=== PATIENT | female | born 1940 | race Caucasian/White ===

== ENCOUNTER 2018-05-25 22:49 | Emergency (ER) | payer OTHER, MEDICARE ==
[2018-05-25 22:57] VITALS: BMI 29.0
--- NOTE | 2018-05-26 00:15 | PDOC ---
History of Present Illness - General Chief Complaint: Psychiatric Stated Complaint: MALAISE Time Seen by Provider: 05/25/18 23:56 - History of Present Illness Initial Comments: This 77-year-old woman presents with a brief episode of palpitations several hours prior to arrival in ER. Patient was seen by her PMD, , earlier today and arrangements for outpatient head CT and laboratory tests are made for tomorrow, 05/26. About an hour after arriving home from the doctor's appointment ( at approximately 8 PM) patient states that she had sensation of rapid heartbeat for approximately 1 minute. During that time, she did not have any shortness of breath, chest pain, lightheadedness. Rapid heartbeat resolved spontaneously and has not recurred. The patient had been seen by her PMD earlier with history of left temporal muscle twitching and lower body sensation of increased heat. 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, RIGHT) Cardiac Disorders: No CVA: No COPD: No CHF: No Dementia: No Diabetes: No GI Disorders: No Disorders: No HTN: Yes Hypercholesterolemia: Yes Liver Disease: No Seizures: No Thyroid Disease: Yes (PARTIAL THYROIDECTOMY FOR NODULE 1994) - Surgical History Abdominal Surgery: No Appendectomy: No Cardiac Surgery: No Cholecystectomy: No Lung Surgery: No Neurologic Surgery: Yes (FUSION C6 AND C7 1994) Orthopedic Surgery: Yes - Immunization History Immunization Up to Date: Yes - Suicide/Smoking/Psychosocial Hx Smoking History: Former smoker Have you smoked in the past 12 months: No If you are a former smoker, when did you quit?: 2006 Information on smoking cessation initiated: No Hx Alcohol Use: No Drug/Substance Use Hx: No Substance Use Type: Alcohol, Tranquilizers Hx Substance Use Treatment: Yes Review of Systems - Review of Systems Able to Perform ROS?: Yes Comments:: 12 point review of systems is negative except for what is noted in the history of present illness *Physical Exam - Vital Signs Last Vital Signs Temp Pulse Resp BP Pulse Ox 97.9 F 78 22 H 178/84 H 98 05/25/18 22:51 05/25/18 22:51 05/25/18 22:51 05/25/18 22:51 05/25/18 22:51 - Physical Exam Comments: GENERAL: Elderly female, alert and oriented 3, pleasant and in no acute distress HEAD: Normal with no signs of trauma. EYES: PERRLA, EOMI, sclera anicteric, conjunctiva clear. ENT: Ears normal, nares patent, oropharynx clear without exudates. Moist mucous membranes. NECK: Normal range of motion, supple without lymphadenopathy, JVD, or masses. LUNGS: Breath sounds equal, clear to auscultation bilaterally. No wheezes, and no crackles. HEART:Regular rate and rhythm, normal S1 and S2 without murmur, rub or gallop. ABDOMEN:.normal bowel sounds No guarding,tenderness or rebound.No masses No distention. EXTREMITIES: Normal range of motion, no edema. No clubbing or cyanosis. No erythema, or tenderness. NEUROLOGICAL: Cranial nerves II through XII grossly intact. Normal speech. No focal neurological deficits. MUSCULOSKELETAL: Back non-tender to palpation, no CVA tenderness SKIN: Warm, Dry, normal turgor, no rashes or lesions noted. Medical Decision Making - Medical Decision Making This 77-year-old woman presents with history of palpitations at home, lasting less than a minute , occurring approximately 4 hours prior to arrival. She had no associated symptoms during the time of rapid heartbeat and has felt well since then. She has had no recurrence of rapid or irregular heartbeat. She has no other complaints. Exam as noted is unremarkable; heart rate is 72 and regular, blood pressure 150/74 and oxygen saturation is 98% on room air. Patient is comfortable and without complaints. Patient is scheduled to have laboratory evaluation and head CT tomorrow as an outpatient, prescribed by her PMD (). She plans to have these performed tomorrow morning. Patient will be discharged with advice to return to the emergency room immediately if she has any recurrent rapid or irregular heart beats or if she experiences any chest pain/shortness of breath/lightheadedness. *DC/Admit/Observation/Transfer Diagnosis at time of Disposition: History of palpitations - Discharge Dispostion Disposition: HOME Condition at time of disposition: Stable - Referrals Referrals: Taco Ceron MD [Primary Care Provider] - - Patient Instructions Printed Discharge Instructions: DI for Palpitations Additional Instructions: Return to ER if you have persistent palpitations or you have chest pain, shortness of breath or lightheadedness Have outpatient labs/CT tomorrow as per Dr Ceron - Post Discharge Activity
[2018-05-26 00:37] VITALS: BP 150/74; PULSE 72; TEMP 98.6
== END 2018-05-26 00:36 | disposition home or self-care (01) ==
LOC: FER 22:49
DX: R00.2 Palpitations (principal); Z87.891 Personal history of nicotine dependence; Z85.3 Personal history of malignant neoplasm of breast; I10 Essential (primary) hypertension; E78.00 Pure hypercholesterolemia, unspecified; E07.9 Disorder of thyroid, unspecified
CPT/HCPCS: 99281-25

== ENCOUNTER 2021-02-14 12:00 | Emergency (ER) | payer OTHER, MEDICARE ==
[2021-02-14 12:08] VITALS: BP 145/87; PULSE 87; TEMP 98.1; BMI 28.1
[2021-02-14] MEDS ORDERED: ACETAMINOPHEN 325 MG TABLET (FP) PO ONE (14:07)
[2021-02-14] MEDS ORDERED: ACETAMINOPHEN 325 MG TABLET (FP) ONE (14:11)
== END 2021-02-14 15:20 | disposition home or self-care (01) ==
LOC: FER 12:00
DX: M25.561 Pain in right knee (principal)
CPT/HCPCS: 73562-TC-RT-FY; 99284-25

== ENCOUNTER 2021-03-05 12:51 | Emergency (ER) | payer OTHER, MEDICARE ==
[2021-03-05 13:02] VITALS: BMI 28.0
[2021-03-05 14:40] LABS: BASO % 1.3 % (0-2.0); EOS % 5.5 % (0-4.5); HEMATOCRIT 38.6 % (32.4-45.2); HEMOGLOBIN 12.6 GM/dL (10.7-15.3); LYMPH % 26.1 % (8-40); MCH 30.1 pg (25.7-33.7); MCHC 32.6 g/dl (32.0-36.0); MEAN CELL VOLUME 92.3 fl (80-96); MEAN PLT VOLUME 8.6 fl (7.5-11.1); MONO % 9.9 % (3.8-10.2); NEUT % 57.2 % (42.8-82.8); PLATELET COUNT 262 10^3/uL (134-434); RBC 4.18 M/mm3 (3.60-5.2); RDW 13.3 % (11.6-15.6); WHITE BLOOD COUNT 4.1 K/mm3 (4.0-10.0)
[2021-03-05 15:12] LABS: CHLORIDE 104 mmol/L (98-107); SODIUM 137 mmol/L (136-145)
[2021-03-05 15:14] LABS: ALBUMIN 3.9 g/dl (3.4-5.0); ANION GAP 6 MMOL/L (8-16); BLOOD UREA NITROGEN 10.6 mg/dL (7-18); CALCIUM 9.6 mg/dL (8.5-10.1); CO2 27 mmol/L (21-32); GLUCOSE,RANDOM 93 mg/dL (74-106); MAGNESIUM 2.3 mg/dL (1.8-2.4)
[2021-03-05 15:18] LABS: CREATININE 0.8 mg/dL (0.55-1.3); SGOT/AST 22 U/L (15-37); SGPT/ALT 31 U/L (13-61)
[2021-03-05 15:20] LABS: ALK PHOS 91 U/L (45-117); BILIRUBIN,TOTAL 0.4 mg/dL (0.2-1); TOT PROT 6.8 g/dl (6.4-8.2)
[2021-03-05 16:22] LABS: EPI CELLS 2 /uL (0-25.1); HYALINE CASTS 0 /uL (0-3.1); PH,URINE 6.5 (5.0-8.0); URINE APPEARANCE CLEAR; URINE BACTERIA 28 /uL (0-1359); URINE BILIRUBIN NEGATIVE (NEGATIVE); URINE COLOR YELLOW; URINE GLUCOSE (UA) NEGATIVE (NEGATIVE); URINE KETONE NEGATIVE (NEGATIVE); URINE LEUK ESTERASE TRACE (NEGATIVE); URINE NITRITE NEGATIVE (NEGATIVE); URINE PROTEIN NEGATIVE (NEGATIVE); URINE RBC 5 /uL (0-23.9); URINE UROBILINOGEN 0.2 mg/dL (0.2-1.0); URINE WBC 4 /uL (0-25.8)
[2021-03-05 16:55] VITALS: BP 158/80; PULSE 85; TEMP 98
== END 2021-03-05 16:57 | disposition home or self-care (01) ==
LOC: JER 12:51
DX: R00.2 Palpitations (principal)
CPT/HCPCS: 36415; 71045-TC-FY; 80053; 81003; 83735; 84439; 84443; 84484; 85025; 87086; 93005; 93010; 99285-25

== ENCOUNTER 2022-04-12 19:39 | Emergency (ER) | payer OTHER, MEDICARE ==
[2022-04-12 19:50] VITALS: TEMP 98.1; BMI 27.3
[2022-04-12 21:54] LABS: BASO % 1.1 % (0-2.0); EOS % 6.4 % (0-4.5); HEMATOCRIT 32.8 % (32.4-45.2); HEMOGLOBIN 11.2 GM/dL (10.7-15.3); LYMPH % 28.9 % (8-40); MCH 31.2 pg (25.7-33.7); MCHC 34.2 g/dl (32.0-36.0); MEAN CELL VOLUME 91.1 fl (80-96); MEAN PLT VOLUME 8.7 fl (7.5-11.1); MONO % 10.7 % (3.8-10.2); NEUT % 52.9 % (42.8-82.8); PLATELET COUNT 238 10^3/uL (134-434); RDW 13.8 % (11.6-15.6); WHITE BLOOD COUNT 5.3 K/mm3 (4.0-10.0)
[2022-04-12 22:00] LABS: CALCIUM 8.9 mg/dL (8.5-10.1)
[2022-04-12 22:01] LABS: ALBUMIN 3.5 g/dl (3.4-5.0); BLOOD UREA NITROGEN 12.5 mg/dL (7-18); INR 1.51 (0.83-1.09); PROTHROMBIN TIME (PATIENT) 17.4 SEC (9.7-13.0)
[2022-04-12 22:04] LABS: CREATININE 0.8 mg/dL (0.55-1.3)
[2022-04-12 22:05] LABS: BILIRUBIN,TOTAL 0.3 mg/dL (0.2-1); TOT PROT 6.4 g/dl (6.4-8.2)
[2022-04-12 22:09] LABS: MAGNESIUM 2.2 mg/dL (1.8-2.4)
[2022-04-12 23:14] VITALS: RESP 18
[2022-04-15 11:52] VITALS: BP 185/80; PULSE 75
== END 2022-04-12 23:14 | disposition home or self-care (01) ==
LOC: JER 19:39
DX: R00.2 Palpitations (principal); I10 Essential (primary) hypertension
CPT/HCPCS: 36415; 80053; 83735; 84443; 84484; 85025; 85610; 93005; 93010; 99284-25

== ENCOUNTER 2022-05-09 18:13 | Emergency (ER) | payer OTHER, MEDICARE ==
[2022-05-09 19:02] VITALS: BP 188/93; PULSE 85; RESP 18; TEMP 97.8; BMI 29.0
[2022-05-09] MEDS ORDERED: DIPHTH,PERTUSS(ACELL),TET 0.5 ML DISP.SYRIN IM ONE ×2 (21:30→21:32)
== END 2022-05-09 21:37 | disposition home or self-care (01) ==
LOC: FER 18:13
PROC: 0HQ0XZZ Repair Scalp Skin, External Approach (ICD-10-PCS; principal; 2022-05-09)
PROC: 3E0234Z Introduction of Serum, Toxoid and Vaccine into Muscle, Percutaneous Approach (ICD-10-PCS; 2022-05-09)
DX: S09.90XA Unspecified injury of head, initial encounter (principal); S01.81XA Laceration without foreign body of other part of head, initial encounter; S89.92XA Unspecified injury of left lower leg, initial encounter; W01.0XXA Fall on same level from slipping, tripping and stumbling without subsequent striking against object, initial encounter
CPT/HCPCS: 12001-25; 70450-TC; 73562-TC-LT-FY; 90471; 90715; 99284-25

== ENCOUNTER 2022-05-16 17:23 | Emergency (ER) | payer OTHER, MEDICARE ==
[2022-05-16 17:51] VITALS: BP 182/86; PULSE 68; RESP 18; TEMP 97.8; BMI 29.0
== END 2022-05-16 17:57 | disposition home or self-care (01) ==
LOC: FER 17:23
DX: Z48.02 Encounter for removal of sutures (principal)
CPT/HCPCS: 99281-25

== ENCOUNTER 2022-09-30 06:47 | Emergency (ER) | payer OTHER, MEDICARE ==
[2022-09-30 07:25] VITALS: RESP 18; TEMP 98; BMI 29.0
[2022-09-30 09:20] VITALS: BP 155/91; PULSE 61
== END 2022-09-30 09:20 | disposition home or self-care (01) ==
LOC: JER 06:47
DX: S09.90XA Unspecified injury of head, initial encounter (principal); W01.198A Fall on same level from slipping, tripping and stumbling with subsequent striking against other object, initial encounter
CPT/HCPCS: 70450-TC; 99284-25

== ENCOUNTER 2022-11-20 19:31 | Emergency (ER) | payer OTHER, MEDICARE ==
[2022-11-20 19:40] VITALS: BP 175/76; PULSE 69; RESP 20; TEMP 98; BMI 29.0
[2022-11-20] MEDS ORDERED: ACETAMINOPHEN 500 MG TABLET (FP) PO ONE (19:59)
[2022-11-20] MEDS ORDERED: ACETAMINOPHEN 500 MG TABLET (FP) ONE (20:01)
== END 2022-11-20 20:21 | disposition home or self-care (01) ==
LOC: JERFT 19:31
DX: T23.152A Burn of first degree of left palm, initial encounter (principal); X10.1XXA Contact with hot food, initial encounter
CPT/HCPCS: 99283-25

== ENCOUNTER 2022-12-08 08:53 | Day surgery (SDC) | payer OTHER, MEDICARE ==
[2022-12-05 09:47] VITALS: BMI 29.0
[2022-12-08] MEDS ORDERED: PHENYLEPHRINE 2.5% OPTHALMIC DROP 2ML BOTTLE ONE (09:49)
[2022-12-08] MEDS ORDERED: CYCLOPENTOLATE HCL 1% OPHTH SOLN 2 ML BOTTLE ONE (09:49)
[2022-12-08] MEDS ORDERED: TROPICAMIDE 1% OPHTH SOLN 15 ML BOTTLE ONE (09:49)
[2022-12-08] MEDS ORDERED: OFLOXACIN 0.3% OPHTHALMIC SOLUTION 5 ML BOTTLE ONE (09:49)
[2022-12-08] MEDS ORDERED: CYCLOPENTOLATE HCL 1% OPHTH SOLN 2 ML BOTTLE OD ONE ×2 (10:10→10:15)
[2022-12-08] MEDS ORDERED: KETOROLAC TROMETHAMINE 0.5% EYE DROP 1 DROP DROPS OD ONE ×2 (10:10→10:15)
[2022-12-08] MEDS ORDERED: PHENYLEPHRINE 2.5% OPHTH SOLN 15 ML BOTTLE OD ONE ×2 (10:10→10:15)
[2022-12-08] MEDS ORDERED: OFLOXACIN 0.3% OPHTHALMIC SOLUTION 5 ML BOTTLE OD ONE ×2 (10:10→10:15)
[2022-12-08] MEDS ORDERED: TROPICAMIDE 1% OPHTH SOLN 15 ML BOTTLE OD ONE ×2 (10:10→10:15)
[2022-12-08] MEDS ORDERED: EPI-SHUGARCAINE (EPINEPHRINE 0.025% & LIDOCAINE-PF 0.75%) 4ML ONE (10:18)
[2022-12-08] MEDS ORDERED: BACITRACIN/POLYMYXIN OPH OINT 3.5 GM TUBE ONE (10:18)
[2022-12-08] MEDS ORDERED: BETAXOLOL HCL 0.25% OPHTHALMIC 10 ML DROPSBTL ONE (10:18)
[2022-12-08] MEDS ORDERED: TETRACAINE 0.5% OPHTH SOLN 2 ML BOTTLE ONE (10:19)
[2022-12-08] MEDS ORDERED: POVIDONE-IODINE 5% OPHTHALMIC PREP 30 ML SOLUTION ONE (10:19)
[2022-12-08] MEDS ORDERED: NEO/POLYMYX B SULF/DEXAMETH OPHTHALMIC 5ML BOTTLE ONE (10:19)
[2022-12-08] MEDS ORDERED: MIDAZOLAM HCL 2 MG/2 ML SINGLE DOSE VIAL ONE (11:09)
[2022-12-08] MEDS ORDERED: ACETAMINOPHEN 325 MG TABLET (FP) PO PRN (11:42)
[2022-12-08] MEDS ORDERED: CYCLOPENTOLATE HCL 1% OPHTH SOLN 2 ML BOTTLE OD SCH (11:45)
[2022-12-08] MEDS ORDERED: PHENYLEPHRINE 2.5% OPHTH SOLN 15 ML BOTTLE OD SCH (11:45)
[2022-12-08] MEDS ORDERED: KETOROLAC TROMETHAMINE 0.5% EYE DROP 1 DROP DROPS OD SCH (11:45)
[2022-12-08] MEDS ORDERED: TROPICAMIDE 1% OPHTH SOLN 15 ML BOTTLE OD SCH (11:45)
[2022-12-08] MEDS ORDERED: OFLOXACIN 0.3% OPHTHALMIC SOLUTION 5 ML BOTTLE OD SCH (11:45)
[2022-12-08 12:21] VITALS: RESP 20
[2022-12-08 12:37] VITALS: BP 140/71; PULSE 60; TEMP 97
== END 2022-12-08 12:40 | disposition home or self-care (01) ==
LOC: FASU 08:53
PROVIDERS: ATTEND Ophthalmology
PROC: 08RJ3JZ Replacement of Right Lens with Synthetic Substitute, Percutaneous Approach (ICD-10-PCS; principal; 2022-12-08 11:22)
DX: H25.89 Other age-related cataract (principal)
CPT/HCPCS: 66984; V2632

== ENCOUNTER 2023-01-05 06:58 | Day surgery (SDC) | payer OTHER, MEDICARE ==
[2022-12-25 15:25] VITALS: BMI 29.0
[2023-01-05] MEDS ORDERED: PHENYLEPHRINE 2.5% OPTHALMIC DROP 2ML BOTTLE ONE (07:13)
[2023-01-05] MEDS ORDERED: TROPICAMIDE 1% OPHTH SOLN 15 ML BOTTLE ONE (07:13)
[2023-01-05] MEDS ORDERED: EPI-SHUGARCAINE (EPINEPHRINE 0.025% & LIDOCAINE-PF 0.75%) 4ML ONE (07:17)
[2023-01-05] MEDS ORDERED: BSS (NA/CA/MG/K) BALANCED SALT SOLUTION OPHTH SOLN 15 ML BOTTLE ONE (07:17)
[2023-01-05] MEDS ORDERED: BACITRACIN/POLYMYXIN OPH OINT 3.5 GM TUBE ONE (07:17)
[2023-01-05] MEDS ORDERED: BETAXOLOL HCL 0.25% OPHTHALMIC 10 ML DROPSBTL ONE (07:17)
[2023-01-05] MEDS ORDERED: POVIDONE-IODINE 5% OPHTHALMIC PREP 30 ML SOLUTION ONE (07:17)
[2023-01-05] MEDS ORDERED: TETRACAINE 0.5% OPHTH SOLN 2 ML BOTTLE ONE (07:17)
[2023-01-05] MEDS ORDERED: NEO/POLYMYX B SULF/DEXAMETH OPHTHALMIC 5ML BOTTLE ONE (07:18)
[2023-01-05] MEDS: CYCLOPENTOLATE HCL 1% OPHTH SOLN 2 ML BOTTLE OS SCH ×3 (07:35→07:45)
[2023-01-05] MEDS: PHENYLEPHRINE 2.5% OPHTH SOLN 15 ML BOTTLE OS SCH ×3 (07:35→07:45)
[2023-01-05] MEDS: KETOROLAC TROMETHAMINE 0.5% EYE DROP 1 DROP DROPS OS SCH ×3 (07:35→07:45)
[2023-01-05] MEDS: TROPICAMIDE 1% OPHTH SOLN 15 ML BOTTLE OS SCH ×3 (07:35→07:45)
[2023-01-05] MEDS: OFLOXACIN 0.3% OPHTHALMIC SOLUTION 5 ML BOTTLE OS SCH ×3 (07:35→07:45)
[2023-01-05 07:36] VITALS: RESP 18
[2023-01-05] MEDS ORDERED: KETOROLAC TROMETHAMINE 0.5% EYE DROP 1 DROP DROPS ONE (07:40)
[2023-01-05] MEDS ORDERED: ONDANSETRON 4 MG/2 ML VIAL ONE (08:48)
[2023-01-05] MEDS ORDERED: DEXAMETHASONE SOD PHOSPHATE 4 MG/1 ML VIAL ONE (08:48)
[2023-01-05] MEDS ORDERED: MIDAZOLAM HCL 2 MG/2 ML SINGLE DOSE VIAL ONE (08:49)
[2023-01-05] MEDS ORDERED: ACETAMINOPHEN 325 MG TABLET (FP) PO PRN (09:13)
[2023-01-05 09:26] VITALS: TEMP 97.4
[2023-01-05 10:02] VITALS: BP 126/68; PULSE 68
== END 2023-01-05 10:05 | disposition home or self-care (01) ==
LOC: FASU 06:58
PROVIDERS: ATTEND Ophthalmology
PROC: 08RK3JZ Replacement of Left Lens with Synthetic Substitute, Percutaneous Approach (ICD-10-PCS; principal; 2023-01-05 08:55)
DX: H25.12 Age-related nuclear cataract, left eye (principal)
CPT/HCPCS: 66984; V2632

== ENCOUNTER 2024-09-11 23:42 | Emergency (ER) | payer MEDICARE, OTHER ==
[2024-09-11 23:57] VITALS: RESP 20; TEMP 98; BMI 27.4
[2024-09-12 00:51] LABS: EOS % 2.6 % (0-4.5); HEMATOCRIT 36.9 % (32.4-45.2); HEMOGLOBIN 12.3 GM/dL (10.7-15.3); LYMPH % 18.3 % (8-40); MCHC 33.4 g/dl (32.0-36.0); MEAN CELL VOLUME 89.9 fl (80-96); MEAN PLT VOLUME 8.2 fl (7.5-11.1); MONO % 9.3 % (3.8-10.2); NEUT % 68.8 % (42.8-82.8); PLATELET COUNT 235 10^3/uL (134-434); RBC 4.11 M/mm3 (3.60-5.2); RDW 13.8 % (11.6-15.6); WHITE BLOOD COUNT 5.3 K/mm3 (4.0-10.0)
[2024-09-12 01:17] LABS: POTASSIUM 4.5 mmol/L (3.5-5.1)
[2024-09-12 01:19] LABS: CALCIUM 9.6 mg/dL (8.5-10.1)
[2024-09-12 01:20] LABS: ALBUMIN 3.8 g/dl (3.4-5.0); BLOOD UREA NITROGEN 13.4 mg/dL (7-18)
[2024-09-12 01:23] LABS: CREATININE 1.3 mg/dL (0.55-1.3)
[2024-09-12 01:24] LABS: BILIRUBIN,TOTAL 0.3 mg/dL (0.2-1); TOT PROT 6.5 g/dl (6.4-8.2)
[2024-09-12 02:08] LABS: EPI CELLS 2 /uL (0-25.1); HYALINE CASTS 0 /uL (0-3.1); PH,URINE 7.5 (5.0-8.0); URINE APPEARANCE CLEAR; URINE BACTERIA 36 /uL (0-1359); URINE BILIRUBIN NEGATIVE (NEGATIVE); URINE COLOR YELLOW; URINE GLUCOSE (UA) NEGATIVE (NEGATIVE); URINE KETONE NEGATIVE (NEGATIVE); URINE LEUK ESTERASE TRACE (NEGATIVE); URINE NITRITE NEGATIVE (NEGATIVE); URINE PROTEIN NEGATIVE (NEGATIVE); URINE RBC 7 /uL (0-23.9); URINE UROBILINOGEN 0.2 mg/dL (0.2-1.0); URINE WBC 15 /uL (0-25.8)
[2024-09-12 02:16] VITALS: BP 166/75; PULSE 56
== END 2024-09-12 02:42 | disposition home or self-care (01) ==
LOC: JER 23:42
DX: I10 Essential (primary) hypertension (principal); R42 Dizziness and giddiness
CPT/HCPCS: 36415; 71045-TC-FY; 80053; 81003; 84484; 85025; 87086; 93005; 93010; 99285-25